=== PATIENT | male | born 1950 | race Caucasian/White ===

== ENCOUNTER 2021-12-27 17:00 | Inpatient (IN) | payer MEDICARE, BC ==
[~2021-12-27] VITALS: Ht 188 cm; Wt 90.3 kg
[2021-12-27 18:01] LABS: HEMOGLOBIN 16.2 gm/dl (14.0-17.5); RED BLOOD COUNT 4.98 M/UL (4.20-5.50); WHITE BLOOD COUNT 8.9 K/UL (4.5-11.0)
[2021-12-28] MEDS ORDERED: CLONIDINE HCL0.3 MG PO (09:05)
[2021-12-28] MEDS ORDERED: COZAAR100 MG PO (10:10)
[2021-12-28] MEDS ORDERED: OMEPRAZOLE40 MG PO (10:11)
[2021-12-28] MEDS ORDERED: CYCLOBENZAPRINE10 MG PO (10:11)
[2021-12-28] MEDS ORDERED: VERAPAMIL ER240 MG PO (10:11)
[2021-12-28] MEDS ORDERED: ASPIRIN EC81 MG PO (10:12)
[2021-12-28] MEDS ORDERED: IBUPROFEN200 MG PO (10:12)
[2021-12-28] MEDS ORDERED: VITAMIN D21250 MCG PO (10:12)
[2021-12-30 10:12] LABS: CREATININE, URINE 196.4 mg/dL (Not Estab.)
[2022-01-03] MEDS ORDERED: CLOPIDOGREL75 MG PO (12:53)
[2022-01-03] MEDS ORDERED: CARDURA 2MG TAB2 MG PO (12:53)
[2022-01-03] MEDS ORDERED: CILOXAN 0.3% O2.5 ML EYELF (12:53)
[2022-01-03] MEDS ORDERED: HYDRALAZINE HC100 MG PO (12:53)
[2022-01-03] MEDS ORDERED: AMLODIPINE BESYL5 MG PO (12:53)
[2022-01-03] MEDS ORDERED: ATORVASTATIN CA40 MG PO (12:53)
== END 2022-01-03 16:21 | disposition home or self-care (01) | DRG 69 ==
LOC: ER1 17:00 → PROG CARE 20:58 → CDU 20:58 → PROG CARE 12-28 01:24
PROVIDERS: Internal Medicine Infectious Disease; Internal Medicine Nephrology; Preventive Medicine Occupational Medicine; ADMIT Internal Medicine
PROC: B24BZZZ Ultrasonography of Heart with Aorta (ICD-10-PCS; principal; 2021-12-28)
DX: G45.9 Transient cerebral ischemic attack, unspecified (principal); I50.33 Acute on chronic diastolic (congestive) heart failure; Z20.822 Contact with and (suspected) exposure to COVID-19; I43 Cardiomyopathy in diseases classified elsewhere; N17.9 Acute kidney failure, unspecified; I13.0 Hypertensive heart and chronic kidney disease with heart failure and stage 1 through stage 4 chronic kidney disease, or unspecified chronic kidney disease; H44.002 Unspecified purulent endophthalmitis, left eye; I16.1 Hypertensive emergency; R29.700 NIHSS score 0; R00.1 Bradycardia, unspecified; T50.995A Adverse effect of other drugs, medicaments and biological substances, initial encounter; B96.89 Other specified bacterial agents as the cause of diseases classified elsewhere; I07.1 Rheumatic tricuspid insufficiency; N18.31 Chronic kidney disease, stage 3a; F10.10 Alcohol abuse, uncomplicated; R47.81 Slurred speech; E78.5 Hyperlipidemia, unspecified; I11.9 Hypertensive heart disease without heart failure; Z79.01 Long term (current) use of anticoagulants; Z79.82 Long term (current) use of aspirin; Z85.46 Personal history of malignant neoplasm of prostate; Z90.79 Acquired absence of other genital organ(s); Z82.49 Family history of ischemic heart disease and other diseases of the circulatory system
CPT/HCPCS: ECHO; 36415; 70450; 70496; 70498; 70551; 71045; 80048; 80053; 80061; 81001; 82043; 82088; 82550; 82553; 82570; 82746; 82962; 83735; 83835; 83880; 84100; 84156; 84244; 84439; 84443; 84484; 85025; 85652; 86140; 87086; 93005; 93306; 96374; 99285; G0378; J1650; P9047; Q9967